=== PATIENT | male | born 1980 | race African-American/Black ===

== ENCOUNTER 2017-01-06 03:16 | Emergency (ER) | payer OTHER ==
[~2017-01-06] VITALS: Ht 188 cm; Wt 294.8 kg
[~2017-01-06 03:16] MED LIST: AMLO5TAB2 PO; CYCL10TA2 PO; HYDR-2672 PO; HYOS0.1264 PO; INDO50CA PO; LOSA1TAB16 PO; LOSA1TAB17 PO; METF500T4 PO; ONDA8TAB12 PO; PANT40TA3 PO; TRAM50TA PO
[2017-01-06] MEDS ORDERED: ALBUTEROL SULFATE 2.5 MG/3 ML NEBU. NEB ONE (04:00)
[2017-01-06] MEDS ORDERED: ONDANSETRON ODT 4 MG TAB.RAPDIS PO ONE (04:00)
[2017-01-06] MEDS ORDERED: IPRATROPIUM BROMIDE 0.5 MG/2.5 ML NEBU. NEB ONE (04:00)
[2017-01-06 04:01] LABS: INFLUENZA A PATIENT NEGATIVE (NEGATIVE); INFLUENZA B PATIENT NEGATIVE (NEGATIVE)
[2017-01-06] MEDS ORDERED: OXYCODONE/APAP 10/325 TABLET. PO ONE (04:30)
[2017-01-06 04:34] LABS: HEMOGLOBIN ISTAT 13.9 gm/dL; POTASSIUM ISTAT 3.3 mmol/L (3.5-5.0)
[2017-01-06] MEDS ORDERED: LIDO:MAALOX 1:1 20 ML SINGLE DOSE PO ONE (05:00)
[2017-01-06 05:05] VITALS: BP 126/87
--- NOTE | 2017-01-06 05:12 | ED.ADGEN ---
Past History Past Medical History: Diabetes, Gallstones, Hypertension, Other Past Surgical History: Cholecystectomy, Other Alcohol Use: None Drug Use: None Adult General Chief Complaint Chief Complaint Vomiting, body aches HPI HPI Patient is a 36-year-old Afro-[place] male who presents with diffuse body aches , nausea and vomiting, onset approximately 3 hours prior to ED arrival. Patient reports multiple episodes of emesis prior to ED arrival with epigastric pain. Emesis is nonbloody and nonbilious. Patient denies diarrhea. No fever chills sweats or flank pain. Patient also reports diffuse body aches and leg pain. Currently on diuretics. Patient is [id number] diabetic. Blood sugar 150. Prior cholecystectomy. Review of Systems Review of Systems ROS as per HPI. Current Medications Current Medications Current Medications Medications (Trade) Dose Ordered Sig/Inna Start Time Stop Time Status Last Admin Dose Admin Albuterol Sulfate (Ventolin) 5 mg 1X ONCE 01/06/17 04:00 01/06/17 04:08 DC Ipratropium Langston (Atrovent) 0.5 mg 1X ONCE 01/06/17 04:00 01/06/17 04:08 DC Multi-Ingredient Mouthwash/Gargle (Gi Cocktail) 20 ml 1X ONCE 01/06/17 05:00 01/06/17 05:01 UNV 01/06/17 05:02 20 ML Ondansetron HCl (Zofran Odt) 12 mg 1X ONCE 01/06/17 04:00 01/06/17 04:01 DC 01/06/17 03:59 12 MG Oxycodone/ Acetaminophen (Percocet 10/325) 1 tab 1X ONCE 01/06/17 04:30 01/06/17 04:31 DC 01/06/17 04:30 1 TAB Allergies Allergies Allergies Coded Allergies Type Severity Reaction Last Updated Verified morphine Allergy Intermediate rash, dilaudid ok 07/17/16 Yes Physical Exam Physical Exam Constitutional: Well developed, well nourished, no acute distress, non-toxic appearance. HENT: Normocephalic, atraumatic, bilateral external ears normal, oropharynx moist, no oral exudates, nose normal. Eyes: PERRLA, EOMI. Neck: Normal range of motion. Cardiovascular:Heart rate regular rhythm, no murmur. I give Homans signs. Lungs & Thorax: Bilateral breath sounds clear to auscultation. Abdomen: Bowel sounds normal, soft, epigastric pain, no tenderness appreciated. Obesity compromising exam. Skin: Warm, no synovitis appreciated of the lower limbs. Extremities: bipedal edema. Neurologic: Alert and oriented X 3, normal motor function, normal sensory function, no focal deficits noted. Psychologic: Affect normal, judgement normal, mood normal. Current Patient Data Vital Signs Vital Signs Date Time Temp Pulse Resp B/P Pulse Ox O2 Delivery O2 Flow Rate FiO2 01/06/17 05:05 97.8 84 20 126/87 97 Room Air Lab Results Laboratory Tests Test 01/06/17 03:30 01/06/17 03:57 01/06/17 04:26 Influenza Type A (Rapid) Negative (NEGATIVE) Influenza Type B (Rapid) Negative (NEGATIVE) Glucose (Fingerstick) 129mg/dL (70-99) H POC Hemoglobin 13.9gm/dL POC Hematocrit 41% POC Sodium 141mmol/L (135-145) POC Potassium 3.3mmol/L (3.5-5.0) L POC Chloride 102mmol/L (98-110) POC Total CO2 25mmol/L (23-32) Anion Gap 18mmol/L (6-14) H POC Blood Urea Nitrogen 11mg/dL (8-26) POC Creatinine 0.8mg/dL (0.5-1.4) Glucose Level 150mg/dL (60-99) H POC Ionized Calcium (Preeti) 1.09mmol/L (1.13-1.32) L EKG EKG [] Radiology/Procedures Radiology/Procedures [Chest x-ray: Interpretation limited by habitus, no obvious acute disease.] Impressions: Nausea vomiting myalgias Course & Med Decision Making Course & Med Decision Making Pertinent Labs and Imaging studies reviewed. (See chart for details) [Nausea improved with treatment in the ED. No vomiting. Tolerates fluids. Pain addressed. Basic labs reviewed and unremarkable. Recommend supportive care, watchful waiting and PCP follow-up. Return precautions reviewed.] Final Impression Final Impression [1 nausea and vomiting 2.Diffuse myalgias] Problems: Dragon Disclaimer Dragon Disclaimer This electronic medical record was generated, in whole or in part, using a voice recognition dictation system. XIOMARA ANDREA DO Jan 06, 2017 05:12
[2017-01-06] MEDS ORDERED: ONDANSETRON 4MG ODT 4TABLET STARTPACK. PO ONE ×2 (05:15→05:19)
--- NOTE | 2017-01-06 07:46 | RAD ---
EXAM: Chest, single view. HISTORY: Shortness of breath. COMPARISON: 12/02/2016. FINDINGS: A frontal view of the chest is obtained. There is limited evaluation due to body habitus. There is suspected lower lobe atelectasis. No effusion or pneumothorax is seen. The heart is normal in size. IMPRESSION: No acute pulmonary finding.
== END 2017-01-06 05:16 | disposition home or self-care (01) ==
LOC: ER 03:16
DX: R11.2 Nausea with vomiting, unspecified (principal); M79.1 Myalgia; R10.13 Epigastric pain; E11.9 Type 2 diabetes mellitus without complications; I10 Essential (primary) hypertension; Z90.49 Acquired absence of other specified parts of digestive tract; Z88.5 Allergy status to narcotic agent
CPT/HCPCS: 71010; 80047; 82947; 87804; 99284; Q0162

== ENCOUNTER 2017-01-09 02:26 | Emergency (ER) | payer OTHER ==
[~2017-01-09] VITALS: Ht 172.7 cm; Wt 294.8 kg
--- NOTE | 2017-01-09 02:34 | ED.ADGEN ---
Past History Past Medical History: Diabetes, Gallstones, Hypertension, Other Past Surgical History: Cholecystectomy, Other Alcohol Use: None Drug Use: None Adult General Chief Complaint Chief Complaint ".. I started hurting really bad .. down here on my Lt. side.. tonight... it even hurts to walk..." HPI HPI Patient is a 36 year old male who presents with above hx and complaints of left lower quadrant pain. Patient states he had stools today which were slightly loose. But pain in left lower quadrant has persistent and increased throughout the night. Patient denies any intake of bad food. Patient denies any travel. Patient denies any immunosuppression. Patient does have a history of HTN and diabetes. Patient denies any history of renal stones or colon problems. She normally follows with at [facility] for his hypertension diabetes. Patient reports blood glucose have been in the range of 100 on checks today Review of Systems Review of Systems Constitutional: Denies fever or chills [] Eyes: Denies change in visual acuity, redness, or eye pain [] HENT: Denies nasal congestion or sore throat [] Respiratory: Denies cough or shortness of breath [] Cardiovascular: No additional information not addressed in HPI [] GI: Complaints of left lower quadrant abdominal pain, nausea. Denies, vomiting, bloody stools. Does complain of for loose or Diarrhea today : Denies dysuria or hematuria [] Musculoskeletal: Denies back pain or joint pain [] Integument: Denies rash or skin lesions [] Neurologic: Denies headache, focal weakness or sensory changes [] Endocrine: Denies polyuria or polydipsia [] Family History Family History Noncontributory Current Medications Current Medications Current Medications Medications (Trade) Dose Ordered Sig/Inna Start Time Stop Time Status Last Admin Dose Admin Famotidine (Pepcid) 20 mg 1X ONCE 01/09/17 03:30 01/09/17 03:31 DC 01/09/17 04:14 20 MG Fentanyl Citrate (Fentanyl 2ml Vial) 75 mcg 1X ONCE 01/09/17 03:30 01/09/17 03:31 DC 01/09/17 03:30 75 MCG Ketorolac Tromethamine (Toradol) 30 mg 1X ONCE 01/09/17 07:00 01/09/17 07:01 DC 01/09/17 06:43 30 MG Lactated Ringer's (Iv Lactated Ringers) 1,000 ml @ 1,000 mls/hr Q1H 01/09/17 03:30 01/09/17 07:32 DC 01/09/17 04:14 1,000 MLS/HR Ondansetron HCl (Zofran) 8 mg 1X ONCE 01/09/17 07:00 01/09/17 07:01 DC 01/09/17 06:43 8 MG See nursing for home medications Allergies Allergies Allergies Coded Allergies Type Severity Reaction Last Updated Verified morphine Allergy Intermediate rash, dilaudid ok 07/17/16 Yes Physical Exam Physical Exam Constitutional: Moderate distress, non-toxic appearance. [] HENT: Normocephalic, atraumatic, bilateral external ears normal, oropharynx moist, no oral exudates, nose normal. [] Eyes: PERRLA, EOMI, conjunctiva normal, no discharge. [] Neck: Normal range of motion, no tenderness, supple, no stridor. [] Cardiovascular:Heart rate regular rhythm, no murmur [] Lungs & Thorax: Bilateral breath sounds equal at apexes with a few basilar crackles bilaterally auscultation [] Abdomen: Bowel sounds normal, soft, left lower quadrant tenderness, no masses, no pulsatile masses. Mild rebound to left lower quadrant. Patient declines rectal exam this time. Large pannus. Old surgical scars Skin: Warm, dry, no erythema, no rash. [] Back: No tenderness, no CVA tenderness. [] Extremities: No tenderness, no cyanosis, no clubbing, ROM intact, ankle edema. Mild psoas and obturator on left Neurologic: Alert and oriented X 3, normal motor function, normal sensory function, no focal deficits noted. [] Psychologic: Affect anxious, judgement normal, mood normal. [] Current Patient Data Vital Signs Vital Signs Date Time Temp Pulse Resp B/P Pulse Ox O2 Delivery O2 Flow Rate FiO2 01/09/17 06:55 98.4 87 20 158/85 98 Nasal Cannula 2 Lab Results Laboratory Tests Test 01/09/17 04:20 White Blood Count 6.5x10^3/uL (4.0-11.0) Red Blood Count 4.71x10^6/uL (4.30-5.70) Hemoglobin 12.7g/dL (13.0-17.5) L Hematocrit 39.5% (39.0-53.0) Mean Corpuscular Volume 84fL (79-100) Mean Corpuscular Hemoglobin 27pg (25-35) Mean Corpuscular Hemoglobin Concent 32g/dL (31-37) Red Cell Distribution Width 17.5% (11.5-14.5) H Platelet Count 314x10^3/uL (140-400) Neutrophils (%) (Auto) 69% (31-73) Lymphocytes (%) (Auto) 19% (24-48) L Monocytes (%) (Auto) 9% (0-9) Eosinophils (%) (Auto) 2% (0-3) Basophils (%) (Auto) 1% (0-3) Neutrophils # (Auto) 4.5x10^3uL (1.8-7.7) Lymphocytes # (Auto) 1.2x10^3/uL (1.0-4.8) Monocytes # (Auto) 0.6x10^3/uL (0.0-1.1) Eosinophils # (Auto) 0.1x10^3/uL (0.0-0.7) Basophils # (Auto) 0.1x10^3/uL (0.0-0.2) Prothrombin Time 12.2SEC (9.4-11.4) H Prothrombin Time INR 1.2 (0.9-1.1) H PTT 25SEC (23-33) Sodium Level 140mmol/L (136-145) Potassium Level 3.6mmol/L (3.5-5.1) Chloride Level 104mmol/L (98-107) Carbon Dioxide Level 29mmol/L (21-32) Anion Gap 7 (6-14) Blood Urea Nitrogen 10mg/dL (8-26) Creatinine 1.1mg/dL (0.7-1.3) Estimated GFR (Cockcroft-Gault) 92.2 Glucose Level 165mg/dL (70-99) H Calcium Level 8.3mg/dL (8.5-10.1) L Total Bilirubin 0.6mg/dL (0.2-1.0) Direct Bilirubin 0.2mg/dL (0.0-0.2) Aspartate Amino Transferase (AST) 12U/L (15-37) L Alanine Aminotransferase (ALT) 19U/L (16-63) Alkaline Phosphatase 91U/L (46-116) Total Protein 7.7g/dL (6.4-8.2) Albumin 2.7g/dL (3.4-5.0) L Amylase Level 59U/L (25-115) Lipase 95U/L (73-393) EKG EKG My interpretation of her interpretation EKG shows a sinus rhythm at 95 bpm. There is no findings acute STEMI with contralateral changes. Radiology/Procedures Radiology/Procedures My interpretation of abdomen film shows no free air in the diaphragm. Previous surgical clips. Nonspecific findings and bowel gas pattern [] Course & Med Decision Making Course & Med Decision Making Pertinent Labs and Imaging studies reviewed. (See chart for details) Must stay on a clear fluid diet only. No solids no milk products 2 days. Clear fluids only to allow bowel rest. Have Zofran 8 mg up 4 times a day for pain. Take Tylenol and ibuprofen for discomfort. Continue diabetic meds. Frequent Accu-Cheks sugar. Must follow-up. Must have reexam if no improvement. Review all labs Primary care. [] Final Impression Final Impression 1. Abdomen pain and left lower quadrant 2. History of diabetes 3. History of hypertension 4. Morbid obesity [] 5. Severe malnutrition-albumin 2.7 6. Normocytic anemia Problems: Dragon Disclaimer Dragon Disclaimer This electronic medical record was generated, in whole or in part, using a voice recognition dictation system. KATHY ERICKSON MD Jan 09, 2017 02:34
[2017-01-09] MEDS ORDERED: ONDANSETRON PF 4 MG/2 ML VIAL. IV ONE ×2 (03:30→07:00)
[2017-01-09] MEDS ORDERED: IV RINGERS SOLUTION,LACTATED 1,000 ML IV SCH (03:30)
[2017-01-09] MEDS ORDERED: FENTANYL PF 100 MCG/2 ML VIAL. IM ONE (03:30)
[2017-01-09] MEDS ORDERED: FAMOTIDINE 20 MG/2 ML VIAL IVP ONE (03:30)
--- NOTE | 2017-01-09 04:35 | EKG ---
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
[2017-01-09 04:53] LABS: ALBUMIN 2.7 g/dL (3.4-5.0); CALCIUM 8.3 mg/dL (8.5-10.1); CREATININE 1.1 mg/dL (0.7-1.3); DIRECT BILIRUBIN 0.2 mg/dL (0.0-0.2); GFR 92.2; POTASSIUM 3.6 mmol/L (3.5-5.1); TOTAL BILIRUBIN 0.6 mg/dL (0.2-1.0); TOTAL PROTEIN 7.7 g/dL (6.4-8.2)
[2017-01-09 05:02] LABS: BASO # 0.1 x10^3/uL (0.0-0.2); BASO % 1 % (0-3); EOS # 0.1 x10^3/uL (0.0-0.7); EOS % 2 % (0-3); HEMATOCRIT 39.5 % (39.0-53.0); HEMOGLOBIN 12.7 g/dL (13.0-17.5); LYMPH # 1.2 x10^3/uL (1.0-4.8); LYMPH % 19 % (24-48); MEAN CORPUSCULAR HEMOGLOBIN 27 pg (25-35); MEAN CORPUSCULAR HGB CONC 32 g/dL (31-37); MEAN CORPUSCULAR VOLUME 84 fL (79-100); MONO # 0.6 x10^3/uL (0.0-1.1); MONO % 9 % (0-9); NEUT # 4.5 x10^3uL (1.8-7.7); NEUT % 69 % (31-73); PLATELET COUNT 314 x10^3/uL (140-400); RED BLOOD COUNT 4.71 x10^6/uL (4.30-5.70); RED CELL DISTRIBUTION WIDTH 17.5 % (11.5-14.5); WHITE BLOOD COUNT 6.5 x10^3/uL (4.0-11.0)
[2017-01-09] MEDS ORDERED: ONDA8TAB12 PO (06:38)
[2017-01-09] MEDS ORDERED: HYDR-79 PO (06:38)
[2017-01-09 06:55] VITALS: BP 158/85
[2017-01-09] MEDS ORDERED: KETOROLAC 30 MG/ML VIAL. IV ONE (07:00)
--- NOTE | 2017-01-09 07:18 | RAD ---
Abdomen series with chest, 3 views, 01/09/2017: History: Abdominal pain The entire abdomen was not included on these images of this large patient. The abdominal gas pattern is unremarkable. No free air is seen in the abdomen. No abnormal abdominal calcifications are evident. Moderate spurring is present in the spine. The heart size is normal. The lungs are clear. There is no evidence of pleural fluid. IMPRESSION: No acute abdominal abnormality is detected.
== END 2017-01-09 07:00 | disposition home or self-care (01) ==
LOC: ER 02:30
DX: R10.32 Left lower quadrant pain (principal); E11.9 Type 2 diabetes mellitus without complications; D64.9 Anemia, unspecified; E43 Unspecified severe protein-calorie malnutrition; E66.01 Morbid (severe) obesity due to excess calories; I10 Essential (primary) hypertension; Z90.49 Acquired absence of other specified parts of digestive tract; Z68.45 Body mass index [BMI] 70 or greater, adult; Z88.5 Allergy status to narcotic agent
CPT/HCPCS: 36415; 74022; 80048; 80076; 82150; 83690; 85027; 85610; 85730; 93005; 96361; 96372; 96374; 96375; 96376; 99285; J1885; J2405; J3010; J7120; S0028